=== PATIENT | female | born 2000 | race Caucasian/White ===

== ENCOUNTER → 2020-10-08 16:03 | Outpatient (CLI) | payer MEDICAID, SELFPAY ==
[2020-10-08 17:30] LABS: Prolactin 8.9 ng/mL; T4 Free Direct 1.12 ng/dL (0.76-1.46); Thyroid Stim Hormone (TSH) 2.88 uIU/mL (0.358-3.74)
== END ==
DX: E03.9 Hypothyroidism, unspecified (principal); E22.1 Hyperprolactinemia
CPT/HCPCS: 36415; 84146; 84439; 84443